=== PATIENT | male | born 1985 | race Caucasian/White ===

== ENCOUNTER 2022-02-21 14:12 | Emergency (ER) | payer OTHER, SELFPAY ==
--- NOTE | ~2022-02-21 | XR_ITS ---
EXAMINATION: XR HAND, LEFT CLINICAL INFORMATION: Cut off tip left index finger. COMPARISON: None TECHNIQUE: PA, lateral, and oblique views of the left hand. FINDINGS: Partial amputation of distal phalangeal tuft second digit with mild soft tissue swelling. XR/XR hand LT 2V IMPRESSION: Partial amputation of distal phalangeal tuft second digit with mild soft tissue swelling. No other bony abnormality.
[2022-02-21 14:19] VITALS: BP 176/118; PULSE 104; RESP 18; TEMP 36.6; O2SAT 95; BMI 33.5
--- NOTE | 2022-02-21 14:26 | ED_ITS ---
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 Patient denies any dizziness, lightheadedness, abdominal pain, nausea, vomiting, fever, chills, blurry vision, double vision, loss of vision, chest pain, difficulty breathing, shortness of breath, back pain, night sweats, pain with urination, increased urinary frequency, increased urinary urgency, blood in his urine or stool, syncope or a near syncopal episode, bowel incontinence, bladder incontinence, bowel retention, bladder retention, or any other complaints at this time. Patient states that he does not know when his last tetanus shot was and he is allergic to the pertussis vaccine. Onset (ago): minute(s) Location: left and upper extremity (index finger) Radiation: non-radiation Severity: severe Severity scale (1-10): >10 Quality: constant Pain Consistency: constant Relieving factors: none Exacerbating factors: none Associated symptoms: denies other symptoms Treatments prior to arrival: none Related Data Previous Rx's Medication Instructions Recorded cephalexin 500 mg capsule 500 mg PO Q6H 7 days #28 caps 02/21/22 doxycycline hyclate 100 mg tablet 100 mg PO BID 7 days #14 tabs 02/21/22 Allergies Allergy/AdvReac Type Severity Reaction Status Date / Time Pertussis Vaccines Allergy Unknown Verified 02/21/22 14:18 Review of Systems Constitutional: Constitutional: Reports no additional constitutional complaints, Denies chills, Denies fever(s) and Denies night sweats Eyes: Eyes: Reports no additional eye complaints, Denies blurry vision, Denies change in vision, Denies diplopia, Denies eye discharge, Denies loss of vision and Denies eye pain ENT: Denies dizziness Cardiovascular: Cardiovascular: Reports no additional cardiovascular complaints, Denies chest pain, Denies lightheadedness, Denies Loss of Consciousness and Denies dyspnea Respiratory: Respiratory: Reports no additional respiratory complaints and Denies dyspnea Gastrointestinal: Gastrointestinal: Reports no additional gastrointestinal complaints, Denies abdominal pain, Denies melena, Denies hematochezia, Denies change in bowel habits and Denies change in stool character Genitourinary: Genitourinary: Reports no additional male genitourinary complaints, Denies hematuria, Denies oliguria, Denies difficulty urinating, Denies dysuria, Denies urinary frequency, Denies urinary hesitancy, Denies urinary incontinence and Denies urinary urgency Musculoskeletal: Musculoskeletal: Reports no additional musculoskeletal complaints, Denies numbness and Denies tingling Comments: left index finger injury Neurologic: Denies dizziness, Denies loss of vision, Denies numbness and Denies tingling Psychiatric: Psychiatric: Reports no additional psychiatric complaints Endocrine: Endocrine: Reports no additional endocrine complaints Hematologic/Lymphatic: Hematologic/Lymphatic: Reports no additional hematologic/lymphatic complaints Allergic/Immunologic: Allergic/Immunologic: Reports no additional allergic/immunologic complaints [facility] Past Medical History Attestation statement: The following information was validated with the patient. Source: old records reviewed Social History Social History Advance Directives: No Advance Directives Information Provided: No Physical Exam ED Vital Signs: Vital Signs - 24 hr 02/21/22 14:19 Temperature 98 F Pulse Rate 104 H Respiratory Rate 18 Blood Pressure 176/118 H Pulse Oximetry 95 Oxygen Delivery Method Room Air BMI result Body Mass Index 33.5 Const General: cooperative, no acute distress, alert and awake Nutritional Appearance: well nourished Orientation/consciousness: patient oriented x3 Limitations: no limitations [facility] Head: Yes normal to inspection and Yes atraumatic Ears: hearing grossly normal bilaterally and external ears normal General nose exam: Normal external nose present, no nasal discharge noted and no epistaxis Face and sinus: Yes normal facial exam, No abrasion and No laceration Mouth: Normal oral and palatal mucosa present, no drooling and no muffled voice Eyes General: appearance normal, both eyes and all related structures Periorbital: periorbital findings normal Eyelids: Yes eyelids normal Conjunctivae: conjunctivae normal Pupils: Equal, round and reactive pupils present EOM: EOMs intact bilaterally Neck Neck: Yes normal visual inspection, Yes full ROM and Yes no lymphadenopathy Chest Chest palpation & inspection: normal inspection of the chest Resp Effort & Inspection: normal respiratory effort and able to speak in complete sentences Auscultation: clear to auscultation bilaterally Cardio Rate: regular rate Rhythm: regular rhythm GI Inspection: Yes normal to inspection Neuro General: patient oriented x3 and moves all extremities Cranial nerves: Yes Equal, round and reactive pupils present Cognition (Neuro): normal cognition Motor exam (neuro): 5/5 motor strength present throughout Sensory Exam: Normal double simultaneous stimulation for sensation Coordination: [id number] test normal Extrem Other: left index finger laceration as pictured General: Yes full ROM and Yes capillary refill normal Psych Appearance: grossly normal Mental Status: mental status grossly normal Affect: normal affect Attitude: cooperative Thought process: Normal thought process present Thought content: Normal thought content present Insight: Good insight present (Psych) Procedures Laceration Laceration 1: Site: other (index finger) Side (If applicable): left Description: linear and contaminated Depth: [id number] Pre-repair: wound explored and irrigated extensively Medical Decision Making MDM Narrative Medical decision making narrative: Patient is a 36 year old assigned male with a reported medical history of MRSA presenting to the emergency department today with a left index finger injury. Patient's physical exam was as documented with a through and through laceration of the left index finger, causing a partial amputation of the left index finger tip. Patient's left hand x-ray showed a partial amputation of the distal phalangeal tuft of the second digit with mild soft tissue swelling. Spoke to the orthopedic provider educational manager who recommended the patient have his wound dressed with surgicell and a compression dressing, the patient be prescribed antibiotics, and that the patient follow up in the coming days in the office. I explained my physical exam findings as well as all test results to the patient. I answered all questions asked by the patient. Patient received a tetanus booster while in the department. Patient's wound was thoroughly washed out then dressed with surgicell and a dressing per orthopedic instructions. Patient's PMS was in tact prior to and after dressing / cleaning of the wound. I stressed the importance of the patient taking his medication as prescribed. I stressed the importance of the patient following up with his primary care provider and an orthopedic provider. I stressed the importance of the patient returning to the emergency department immediately if his symptoms were to worsen or if he were to develop any dizziness, shortness of breath, difficulty breathing, chest pain, blurry vision, loss of vision, nausea, vomiting, abdominal pain, fever, chills, back pain, or any other complaints. Patient verbalized agreement and understanding with this treatment plan and discharge. Medical Records Medical records reviewed: Yes I reviewed the patient's medical records. Imaging Data Left hand x-ray: Attestation: I personally reviewed and interpreted this imaging study as follows: My impression: Partial amputation of the left 2nd digit. Radiologist's impression: EXAMINATION: XR HAND, LEFT CLINICAL INFORMATION: Cut off tip left index finger.? COMPARISON: None? TECHNIQUE: PA, lateral, and oblique views of the left hand. FINDINGS: Partial amputation of distal phalangeal tuft second digit with mild soft tissue swelling. XR/XR hand LT 2V IMPRESSION: Partial amputation of distal phalangeal tuft second digit with mild soft tissue swelling. No other bony abnormality. Dictated By: Anthony Rhodes MD Signed By: Electronically signed by Anthony Rhodes MD 02/21/22 1557 Critical Care Time Critical Care Time Critical Care Time: Yes Total Critical Care Time: 30 Attestation: I spent 30 minutes of Critical Care Time with this patient. This does not include time spent on separately reported billable procedures. Discharge Plan Discharge Clinical Impression: Laceration Patient Disposition: Home, Self-Care Additional Instructions: Follow up with your primary care provider and an orthopedic provider. Return to the emergency department immediately if your symptoms worsen or if you develop any dizziness, shortness of breath, difficulty breathing, chest pain, blurry vision, loss of vision, nausea, vomiting, abdominal pain, fever, chills, back pain, or any other complaints. Prescriptions: New cephalexin 500 mg capsule 500 mg PO Q6H 7 Days Qty: 28 0RF doxycycline hyclate 100 mg tablet 100 mg PO BID 7 Days Qty: 14 0RF Referrals: [facility] Family Medicine [Provider Group] (Call to establish and follow up with a primary care provider. If you already have a primary care provider, please follow up with them. ) [facility] [Provider Group] (Call to establish and follow up with a primary care provider. If you already have a primary care provider, please follow up with them. ) [facility] Primary [facility] [Provider Group] (Call to establish and follow up with a primary care provider. If you already have a primary care provider, please follow up with them. ) [facility] [Provider Group] (Call to establish and follow up with an orthopedic provider. ) [facility] [Provider Group] (If your employer requires it, call to establish and follow up with [facility]. ) Stand Alone Forms: Work/School Release Interventions: ED Discharge Assessment Last Done: 02/21/22 15:59 Discharge Date/Time: 02/21/22 16:00 Print Language: Yoruba
[2022-02-21] MEDS: Tetanus Immune Globulin/PF 250 UNIT SYRINGE IM (15:40)
== END 2022-02-21 16:00 | disposition home or self-care (01) ==
PROVIDERS: Emergency Provider Emergency Medicine Emergency Medical Services
DX: S68.121A Partial traumatic metacarpophalangeal amputation of left index finger, initial encounter (principal); S60.512A Abrasion of left hand, initial encounter; M79.642 Pain in left hand; W26.9XXA Contact with unspecified sharp object(s), initial encounter; Y93.9 Activity, unspecified; Y92.9 Unspecified place or not applicable; Y99.0 Civilian activity done for income or pay
CPT/HCPCS: 12041; 73120; 90471; 96372; 99283; 99284; J1670

== ENCOUNTER 2022-02-21 18:44 | Emergency (ER) | payer OTHER, SELFPAY ==
[2022-02-21 19:03] VITALS: BMI 34.7
--- NOTE | 2022-02-21 19:20 | ED.WOUNDLAC ---
HPI - Wound/Laceration General Chief Complaint: Wound/Laceration Stated Complaint: Bleeding Heavily From Wound Area Time Seen by Provider: 02/21/22 19:03 Source: patient Mode of arrival: ambulatory Limitations: no limitations History of Present Illness HPI narrative: 36-year-old male presents for bleeding from a wound site was evaluated and treated earlier today. Patient bumped his finger and had some bleeding seen through the dressing. He was advised to return to the emergency department if he noted bleeding through the dressing. Does not report any other medical complaints at this time. Onset (ago): hour(s) (Within the hour of arrival) Extremity Location: left: hand (Index finger) Place: work Patient tetanus UTD: Yes Context: accidental Associated symptoms: pain Treatments prior to arrival: bandage Related Data Previous Rx's Medication Instructions Recorded cephalexin 500 mg capsule 500 mg PO Q6H 7 days #28 caps 02/21/22 doxycycline hyclate 100 mg tablet 100 mg PO BID 7 days #14 tabs 02/21/22 Allergies Allergy/AdvReac Type Severity Reaction Status Date / Time Pertussis Vaccines Allergy Unknown Verified 02/21/22 14:18 Review of Systems Review of Systems: Constitutional: No Fever, No Chills ENT/Mouth: No Ear Pain, No Hoarseness, No sore throat Eyes: No Eye Pain, No Swelling, No Redness, No Foreign Body Cardiovascular: No Chest Pain, No SOB Respiratory: No Cough, No Dyspnea Gastrointestinal: No Nausea, No Vomiting, No Diarrhea, No abdominal Pain Genitourinary: No Dysuria, No Hematuria Musculoskeletal: positive left index pain, No Myalgias, No Joint Swelling Skin: Positive left index wound bleeding, No Skin lacerations, No rash Neuro: No Weakness, No Numbness, No Paresthesias, No Loss of Consciousness, No Dizziness, No Headache Psych: No Anxiety/Panic, No Depression Heme/Lymph: no easy bruising, no Lymphadenopathy Endocrine: No Polyuria, No Polydipsia Yes all other systems are reviewed and are negative [facility] Past Medical History Attestation statement: The following information was validated with the patient. Source: old records reviewed Physical Exam Vital Signs: Vital Signs: BMI result Body Mass Index 34.7 Appearance: Alert. Oriented X3. No acute distress. Eyes: Pupils equal, round and reactive to light. ENT: Pharynx normal. Neck: Normal inspection. Neck supple. CVS: Normal heart rate and rhythm. Pulses normal. Respiratory: No respiratory distress. Breath sounds normal. Abdomen: Soft and nontender. Skin: Surgicel in place to the left index tip. Skin warm and dry. Normal skin color. Normal skin turgor. Extremities: No lower extremity edema. Brisk capillary refill, equal pulses. Gait well-balanced well coordinated Neuro: No motor deficit. No sensory deficit. Cranial nerves 2-12 intact Course Course Course Narrative: 36-year-old male presents for re-evaluation of a bleeding wound. He cut the tip of his finger off with the hydraulic press, was treated by a PA earlier today, left at 15:30. He hit his finger while at work, and noted bleeding from the site. He presents for evaluation and did the dressing, Surgicel is in place. We did not remove the Surgicel, but did reapply gauze dressing, pressure dressing and splint for protection. Patient was specific with his dressing request, would like the dressing to be a small as possible, because he needs to work. I did advise this patient that he needs to keep the wound clean and dry, and that he needs to follow-up with hand surgery as advised by the prior PA. Patient discharged from triage to home. Patient verbalized understanding of and agrees to plan of care discharge home. Verbalized understanding of signs symptoms indicating need for emergent intervention. MDM - Wound/Laceration MDM Narrative Medical decision making narrative: Bleeding Differential Diagnosis Differential diagnosis: Likely laceration Medical Records Attestation: I reviewed the patient's medical records. Discharge Plan Discharge Clinical Impression: Laceration Patient Disposition: Home, Self-Care Instructions: Finger Laceration (ED) Additional Instructions: Keep dressing in place. Changes needed. Follow-up with hand surgery tomorrow. Thank you for choosing this emergency department for evaluation. Please follow-up with primary care physician as needed. Return to the emergency department for any new, concerning, or worsening symptoms. Prescriptions: No Action cephalexin 500 mg capsule 500 mg PO Q6H 7 Days Qty: 28 0RF doxycycline hyclate 100 mg tablet 100 mg PO BID 7 Days Qty: 14 0RF Interventions: ED Discharge Assessment Last Done: 02/21/22 19:14
== END 2022-02-21 20:30 | disposition home or self-care (01) ==
PROVIDERS: Emergency Provider Emergency Medicine
DX: Z48.00 Encounter for change or removal of nonsurgical wound dressing (principal)
CPT/HCPCS: 99282

== ENCOUNTER 2022-02-27 08:25 | Outpatient (REF) | payer OTHER, SELFPAY ==
--- NOTE | ~2022-02-27 | XR_ITS ---
EXAMINATION: XR HAND, LEFT CLINICAL INFORMATION: Pain COMPARISON: 02/21/2022 TECHNIQUE: PA, lateral, and oblique views of the left hand. FINDINGS: Again demonstrated is amputation of the soft tissues of the distal index finger as well as cortical irregularity/truncation of the tuft which appears similar and presumably posttraumatic. Cannot exclude the possibility of osteomyelitis. XR/XR hand LT min 3V IMPRESSION: Again demonstrated is amputation of the soft tissues of the distal index finger as well as cortical irregularity/truncation of the tuft. Cannot exclude osteomyelitis.
== END 2022-02-27 08:26 | disposition home or self-care (01) ==
LOC: HO.HOSX 08:25
PROVIDERS: Visit Provider Physician Assistant
DX: S68.111A Complete traumatic metacarpophalangeal amputation of left index finger, initial encounter (principal)
CPT/HCPCS: 73130; 99202

== ENCOUNTER 2022-03-05 08:49 | Day surgery (SDC) | payer OTHER, SELFPAY ==
--- NOTE | 2022-03-02 09:00 | P.CONAN_ITS ---
Documented by User: Tanja Streeter NP 03/02/22 09:01 HPI - Anesthesia Eval Consult details Narrative: 36yo M for Left Amputation Revision of index finger PMFSH Active Problems Active Problems: All Active Problems (Updated 02/27/22 @ 09:48 by Ciarra Saldivar) Traumatic amputation of left index finger (Acute) Past Medical History Medical History High blood pressure Social History Social History Patient Tobacco Use Status: Current everyday Tobacco user Tobacco use type: Smokeless Tobacco Use of substances other than those prescribed or required for medical reasons: No Are you DNR?: No Advance Directives: No Advance Directives Information Provided: Yes 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, 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, 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 Allergies Allergy/AdvReac Type Severity Reaction Status Date / Time Pertussis Vaccines Allergy Unknown Verified 02/21/22 14:18 Home Medications Medication Instructions Recorded Confirmed Last Taken Type aspirin 325 mg tablet 325 mg PO DAILY 02/27/22 Unknown History famotidine 10 mg tablet 10 mg PO DAILY 02/27/22 Unknown History Exam Exam Date and Time: March 02, 2022 0900 Assessment and Plan Assessment Anesthesia Assessment: Chart Reviewed Documented by User: Margaux Reyes MD 03/05/22 14:13 [facility] Past Medical History Medical History High blood pressure Surgical History History of Problems with Anesthesia: No Social History Social History Patient Tobacco Use Status: Current everyday Tobacco user Tobacco use type: Smokeless Tobacco Use of substances other than those prescribed or required for medical reasons: No Are you DNR?: No Advance Directives: No Advance Directives Information Provided: Yes 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, 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, 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 Allergies Allergy/AdvReac Type Severity Reaction Status Date / Time Pertussis Vaccines Allergy Unknown Verified 02/21/22 14:18 Home Medications Medication Instructions Recorded Confirmed Last Taken Type aspirin 325 mg tablet 325 mg PO DAILY 02/27/22 Unknown History famotidine 10 mg tablet 10 mg PO DAILY 02/27/22 Unknown History Exam Airway Mallampati Class: III TM Dist: >3cm Neck ROM: Full Loose/Missing/Broken Teeth: No Heart: RRR Lungs: CTA Assessment and Plan Assessment Anesthesia Assessment: Anesthesia Plan Discussed Final Anesthetic Review History of Problems with Anesthesia: No NPO: Yes ASA Class: II Patient Risk: Low Procedure Risk: Low Anesthetic Plan Anesthetic Plan: GA Disposition: Standard PACU
[2022-03-05 09:42] VITALS: BP 166/105; PULSE 79; RESP 16; TEMP 36.6; O2SAT 96; BMI 34.7
[2022-03-05] MEDS: Lactated Ringers 1,000 ML 100 ML IVCONT (10:06)
[2022-03-05 15:12] VITALS: BP 133/80; PULSE 66; RESP 16; TEMP 36.1; O2SAT 98
[2022-03-05 15:17] VITALS: BP 111/60; PULSE 66; RESP 18; O2SAT 97
[2022-03-05 15:30] VITALS: BP 109/62; PULSE 76; RESP 18; O2SAT 97
[2022-03-05] MEDS: oxyCODONE HCl Immed Release 5 MG TABLET PO (16:00)
[2022-03-05 16:05] VITALS: BP 116/68; PULSE 73; RESP 18; TEMP 36.1; O2SAT 97
--- NOTE | 2022-03-05 17:28 | P.OP_ITS ---
Operative Note Operative Note Date of Service: 03/05/22 Narrative: Operative Note Narrative: Preop diagnosis: 1. Left index finger distal phalanx level amputation through the nail bed Postop diagnosis: Same Procedure: 1. Left index finger distal phalanx level revision amputation 2. Left index finger excision of germinal and sterile nail matrices Surgeon: Lashon Rainey MD Anesthesia: General Anesthesia Findings: guillotine type amputation through the proximal nail bed of the left index finger exposed bone Implants: none Tourniquet time: finger tourniquet for less than 30 minutes EBL: 5.0 ml Specimen: none Drains: None Complications: None Disposition: Brought to the recovery room in stable condition Plan: Follow-up next week for wound check anticipate suture removal in about 3 weeks based on wound healing I have ordered 5 additional days of oral antibiotics as this is an open fracture 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 Indications: The patient is a [age] year old man with a left index finger distal phalanx level traumatic amputation that occurred at work when his finger got caught in a hydraulic cylinder. . The risks and benefits of operative treatment, including but not limited to risk of damage to blood vessels, nerves, tendons, infection, recurrence, persistent pain or numbness, incomplete resolution of preoperative symptoms, or need for further surgery were discussed with the patient and they wished to proceed with surgery. Procedure: Once consent was obtained patient was brought back to the operating suite and placed in the operating table in a supine position. . Perioperative antibiotics and anesthesia was administered by the anesthesia team. A Finger tourniquet was applied to the proximal aspect of the left index finger for few or than 30 minutes. He had a guillotine type amputation through the proximal nail bed of the left index finger. The nail plate had already been removed. It was clear that he would not benefit from having a nail apparatus as he would not have enough nail to support it. The sterile and germinal matrices that remained were then carefully excised using a 15. Blade and a small rongeur. The wound was copiously sleep irrigated with normal saline. The skin edges were debrided of approximately 1 mm of skin in Anticipation of our repair. The distal phalanx was shortened by about 5-6 mm to facilitate soft tissue coverage. This was done using a bone biter. The bone edges were then smoothed using a small rongeur. I then brought the volar flap around the distal and of the bone. Again the wound was irrigated with normal saline. The skin edges were then reapproximated with some 4-0 nylon suture material. At this point the Finger tourniquet was removed and hemostasis was obtained with a brief period of local pressure. A digital block was performed using some 0.5% plain ropivacaine for postop pain control and a sterile dressing was a pplied. The patient appears to have tolerated the procedure well and with no complications. All digits were well vascularized conclusion of the case.
--- NOTE | 2022-03-05 17:28 | MHC.SHP ---
Pre-Procedural Eval Section A Date of Service: 03/05/22 The patient is an INPATIENT: No Changes since office visit: No Cold of Flu in the past 2 weeks, No New Medical Problems, No Changes in Medication and No Patient answered all questions The History & Physical has been completed within 30 days and I have reviewed it.: Yes Section B Chief Complaint: Partial traumatic transphalangeal amputation of le Allergies: Allergies Allergy/AdvReac Type Severity Reaction Status Date / Time Pertussis Vaccines Allergy Unknown Verified 02/21/22 14:18 Plan I have reviewed the history and physical and performed a pertinent physical examination on my patient. No changes have occurred unless specified.
== END 2022-03-05 16:23 | disposition home or self-care (01) ==
PROVIDERS: Visit Provider Orthopaedic Surgery
PROC: (CPT 26951; principal; 2022-03-05 11:20)
DX: S68.121A Partial traumatic metacarpophalangeal amputation of left index finger, initial encounter (principal); W31.89XA Contact with other specified machinery, initial encounter; Y93.89 Activity, other specified; Y92.89 Other specified places as the place of occurrence of the external cause; Y99.0 Civilian activity done for income or pay; I10 Essential (primary) hypertension; Z79.899 Other long term (current) drug therapy; Z88.7 Allergy status to serum and vaccine; F17.200 Nicotine dependence, unspecified, uncomplicated
CPT/HCPCS: 26951; 11750; J0690; J1100; J1170; J2250; J2405; J2795; J3010

== ENCOUNTER → 2022-09-14 11:26 | Outpatient (BNVA) | payer OTHER, SELFPAY | PROVIDERS: Visit Provider Orthopaedic Surgery | DX: L60.9 Nail disorder, unspecified (principal) | CPT/HCPCS: 99212 ==

== ENCOUNTER 2022-09-27 13:39 | Day surgery (SDC) | payer OTHER, SELFPAY ==
[2022-09-27 14:00] VITALS: BMI 36.5
--- NOTE | 2022-09-27 16:36 | MHC.SHP ---
Pre-Procedural Eval Section A Date of Service: 09/27/22 The patient is an INPATIENT: No Changes since office visit: No Cold of Flu in the past 2 weeks, No New Medical Problems, No Changes in Medication and No Patient answered all questions The History & Physical has been completed within 30 days and I have reviewed it.: Yes Section B Chief Complaint: Nail disorder, unspecified Allergies: Allergies Allergy/AdvReac Type Severity Reaction Status Date / Time Pertussis Vaccines Allergy Unknown Verified 09/27/22 14:02 Plan I have reviewed the history and physical and performed a pertinent physical examination on my patient. No changes have occurred unless specified. Time Spent With Patient Time: Total time managing care of this patient today ____ minutes.
--- NOTE | 2022-09-27 16:37 | P.OP_ITS ---
Operative Note Operative Note Date of Service: 09/27/22 Narrative: Operative Note Preop diagnosis: 1. Left index finger nail horn Postop diagnosis: same Procedure: 1. left index finger nail horn excision and excision of underlying nail matrix Surgeon: Lashon Rainey MD Anesthesia: digital block using 1% lidocaine with epinephrine Findings: nail horn EBL: Less than 5 mL Tourniquet time: None Specimens: nail horn Complications: None Disposition: Brought to recovery room in stable condition Plan: Follow-up for 7-10 days for wound check and suture removal and to check pathology Indications: The patient is 37 years old, with a left index finger nail horn. This patient is status post a revision amputation of the distal aspect of his left index finger. . The risks and benefits of operative treatment including but not limited to risk of damage to blood vessels, nerves, tendons, infection, persistent pain, persistent symptoms, recurrence or possible need for additional surgery were discussed with the patient and the patient wishes to proceed with surgery. Procedure: Once consent was obtained a digital block was performed in the preop area using a combination of 1% lidocaine with epinephrine. The patient was then brought back to the operating suite and placed on the operative table in supine position. The left upper extremity was prepped and draped in a standard surgical fashion. finger tourniquet was placed about the left index finger for Fewer than 30 minutes. Once assured that we had a good block, I made a longitudinally oriented elliptical incision about the nail horn and extending proximally To the un derlying remaining nail bed. The nail horn was excised using a 15. Blade. I then dissected down to the proximal aspect of this nail horn and the remaining cluster of germinal matrix tissue was removed using a rongeur. Once satisfied with Our excision of the nail horn and germinal matrix the wound was copiously irrigated with normal saline. The finger tourniquet was removed and hemostasis was obtained with a brief period of local pressure. The skin edges were reapproximated with some 4.0 nylon suture material and a sterile dressing was applied. The patient appears to have tolerated the procedure well and with no complications. All digits were well vascularized at the conclusion of the case.
[2022-09-27 17:20] VITALS: BP 155/99; PULSE 88; RESP 20; TEMP 36.2; O2SAT 96
== END 2022-09-27 17:30 | disposition home or self-care (01) ==
PROVIDERS: PCP Family Medicine; Visit Provider Orthopaedic Surgery
PROC: (CPT 11750; principal; 2022-09-27 14:20)
DX: L60.2 Onychogryphosis (principal); Z89.022 Acquired absence of left finger(s); I10 Essential (primary) hypertension; F17.220 Nicotine dependence, chewing tobacco, uncomplicated; Z88.7 Allergy status to serum and vaccine
CPT/HCPCS: 11750; 88304; 88305; 88312; J0171

== ENCOUNTER → 2022-10-18 12:58 | Outpatient (BNVA) | payer OTHER, SELFPAY | PROVIDERS: PCP Family Medicine; Visit Provider Physician Assistant ==

== ENCOUNTER → 2022-10-26 11:12 | Outpatient (BNVA) | payer OTHER, SELFPAY | PROVIDERS: PCP Family Medicine; Visit Provider Physician Assistant ==

== ENCOUNTER 2022-10-31 11:34 | Outpatient (REF) | payer OTHER, SELFPAY ==
--- NOTE | ~2022-10-31 | XR_ITS ---
EXAMINATION: XR HAND, LEFT CLINICAL INFORMATION: Pain. COMPARISON: Radiographs dated 02/27/2022 and 02/21/2022. TECHNIQUE: PA, lateral, and oblique views of the left hand. FINDINGS: There has been an interim amputation of the full tuft and shaft of the second distal phalanx. The amputation margin appears sharp, and there is no focal soft tissue swelling or gas. A 1 mm radiopaque foreign body is seen in the soft tissue pad of the distal thumb. A further tiny radiopaque foreign body is noted in the volar, medial soft tissues of the wrist. No fracture or dislocation is seen. There is no abnormal bone erosion or production. The proximal and distal carpal rows are intact. XR/XR hand LT min 3V IMPRESSION: 1. There has been an interim further partial amputation of the second distal phalanx. The amputation margins appear sharp. 2. Tiny radiopaque foreign bodies are redemonstrated of the left thumb and wrist.
== END 2022-10-31 11:35 | disposition home or self-care (01) ==
LOC: HO.HOSX 11:34
PROVIDERS: PCP Family Medicine; Visit Provider Orthopaedic Surgery
DX: S68.111D Complete traumatic metacarpophalangeal amputation of left index finger, subsequent encounter (principal); M79.642 Pain in left hand; L60.9 Nail disorder, unspecified; X58.XXXD Exposure to other specified factors, subsequent encounter
CPT/HCPCS: 73130

== ENCOUNTER 2023-01-01 11:27 | Outpatient (AMB) | payer OTHER, SELFPAY ==
[2023-01-01 11:37] VITALS: BMI 36.5
--- NOTE | 2023-01-01 11:37 | MHC.OFFVIS ---
Intake Vital Signs 01/01/23 11:37 Height 6 ft 4 in Weight 300 lb BMI 36.5 Intake Visit Reasons: Postop-L IF Exc. Nail Horn 09/27/22 [place] Intake Note: Clem, 37 year old right hand dominant male who presents today for a post operative left IF nail horn excision and excision of underlying nail matrix, 09/27/22 AR wound check. Patient reports his pain is manageable. States he now has a small lump on tip of finger and is having numbness and tingling in his index finger. Allergies Pertussis Vaccines Allergy (Verified 01/01/23 11:41) Unknown HPI Postop-L IF Exc. Nail Horn 09/27/22 AR HPI Details Clem is a 37 year old right hand dominant man who presents S/P left index finger excision of nail horn, DOS: 09/27/22. He has a Hx of left index finger traumatic amputation with revision amputation on 03/05/22. He continues to have pain associated with the nail horn, and a new hard lump on the dorsal aspect of the tip of his index finger that changes in size. He says his pain is manageable, and intermittent. He would like to discuss surgery to again try to remove the nail horn. He continues to have decreased sensation to the tip of the pad of his index finger.? 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 He has a small nail horn in the dorsal radial aspect of the amputation site, several mm in diameter He appears to have a new cystic mass just ulnar to the nail horn, over the dorsal central tip of the index finger, just proximal to the incision site This mass measures ~5-6mm in diameter, nontender but does change in size. This may be a mucous cyst. This is not particularly tender He complains of episodes of pain in the far ulnar aspect of the amputation site, not tender today Negative Tinel's sign to testing of the radial and ulnar the tip of the finger No hypersensitivity He can make a fist and extend all his digits No evidence of infection. All the fingers are very dirty, with grease from his work, including this index finger. Sensation is Cap refill is brisk Radiographs: 3 views of the left hand, with attention to the index finger, were reviewed by me today in clinic. Patient S/P distal phalanx level revision amputation. Interestingly there is a small spike of bone protruding out of the radial edge of the remaining distal phalanx. Excellent soft tissue coverage of the distal phalanx on all views Psych Appearance: grossly normal Affect: normal affect Attitude: cooperative Assessment & Plan Assessment & Plan (1) Nail abnormality: Comment: left index finger nail horn excision and excision of underlying nail matrix 09/27/2022 AR Code(s): L60.9 - Nail disorder, unspecified (2) Traumatic amputation of left index finger: Code(s): S68.111A - Complete traumatic metacarpophalangeal amputation of left index finger, initial encounter (3) Mass of finger of left hand: Code(s): R22.32 - Localized swelling, mass and lump, left upper limb Plan Assessment and plan: 1. Left index finger persistent nail horn, S/P nail horn excision and excision of underlying nail matrix DOS: 09/27/22 S/P traumatic amputation and revision amputation, DOS: 03/05/22. 2. Left index finger dorsal cystic mass This is a new finding. Just ulnar to the nail horn, over the dorsal central tip of the index finger, just proximal to the incision site Measures ~5-6mm in diameter, nontender but does change in size The patient appears to be doing well post-operatively with no evidence of infection He says the size of the recurrent nail horn is ~1/4 the size of the nail horn prior to surgery He would like to have a repeat excision sometime this Fall He will follow up in 6-8 weeks to discuss possible excision of the nail horn & germinal matrix associated with it, aas well as posible removal of mass/mucus cyst He says he has 2 weeks of PTO he can use prior to the end of the calendar year, and needs to coordinate surgery and recovery with work. 3. Left index finger numbness to tip of pad This was not present prior to his nail horn excision This is likely secondary to being in a dressing for a prolonged period of time He has some pain along the radial tip of the finger, this is intermittent and episodic, and can happen at night The area was nontender to palpation with a negative Tinel sign today in clinic. The reason for this pain is unclear Scribed for Lashon Rainey MD by Kalia Willis, medical practice administrator, on 01/01/23 at 11:50 AM, EST. Coding Level of Care Code Est Pt Level 3 (66280) Diagnoses Nail abnormality L60.9 Traumatic amputation of left index finger S68.111A Mass of finger of left hand R22.32
== END 2023-01-01 12:17 | disposition home or self-care (01) ==
PROVIDERS: PCP Family Medicine; Visit Provider Orthopaedic Surgery
DX: S68.111A Complete traumatic metacarpophalangeal amputation of left index finger, initial encounter (principal); L60.9 Nail disorder, unspecified; R22.32 Localized swelling, mass and lump, left upper limb
CPT/HCPCS: 99213

== ENCOUNTER → 2023-01-01 11:27 | Outpatient (BNVA) | payer OTHER, SELFPAY | PROVIDERS: PCP Family Medicine; Visit Provider Orthopaedic Surgery | DX: R22.32 Localized swelling, mass and lump, left upper limb (principal); S68.111D Complete traumatic metacarpophalangeal amputation of left index finger, subsequent encounter; Z98.890 Other specified postprocedural states | CPT/HCPCS: 99212 ==